=== PATIENT | male | born 1980 | race Caucasian/White ===

== ENCOUNTER → 2019-04-30 | Outpatient (CLI) | payer BC ==
--- NOTE | 2019-04-30 12:27 | CONS ---
CONSULTATION DATE OF SERVICE: 04/30/2019 A 38-year-old gentleman who had been evaluated in the sleep center for possible obstructive sleep apnea-hypopnea syndrome. HISTORY OF PRESENT ILLNESS/SLEEP-WAKE EVALUATION: Patient's usual sleep schedule from 12:30 a.m. until around 7:30 a.m. on working days and from 9 p.m. to 7 a.m. on weekend. Usually no problems with falling asleep. No TV in bedroom. Patient usually sleeps on the side position with his , and according to her, he has loud snoring. He wakes up from sleep about 2 times with episodes of gasping for air and has 2 episodes of nocturia at night. No history of hypnagogic hallucinations, sleep paralysis or cataplexy. In the morning, patient wakes up tired. He rarely takes naps. Roosevelt Sleepiness Scale is 5. PAST MEDICAL HISTORY: Positive for hypertension, gout, back problems. PAST SURGICAL HISTORY: Right second toe surgery for arthritis elated to gout. MEDICATIONS: Meloxicam, losartan hydrochlorothiazide, baby aspirin, ZzzQuil occasionally. SOCIAL HISTORY: Negative for smoking or using alcohol. FAMILY HISTORY: Hypertension, snoring. REVIEW OF SYSTEMS: Awakenings from sleep, episodes of tiredness and sleepiness during the day. PHYSICAL EXAMINATION: During physical exam, gentleman without distress. VITAL SIGNS: BP 124/91, HR 90, RR 16, height 5 feet 10-3/4 inches, weight 251 pounds, body mass index 35.3. Neck 19 inches in circumference. Temperature 98.5, oxygen saturation at room air 97%. HEENT: PERRLA, EOMI. Oropharynx extremely low position of soft palate. Mallampati 4. NECK: Supple, no JVD. Thyroid is not palpable. LUNGS: Clear to percussion and to auscultation. Good air exchange. No wheezing or rhonchi. HEART: S1, S2 regular. No murmurs, gallops, or rubs. ABDOMEN: Slightly obese. EXTREMITIES: No clubbing or cyanosis. [employer]: Awake, alert, and oriented X3. Cranial nerves 2 to 7 intact. There is no fasciculation or atrophy. noted. No focal deficits observed. IMPRESSION: 1. Loud snoring, awakenings from sleep with nocturia, extremely low position of soft palate, Mallampati IV, wide neck 19 inches in circumference, episodes of sleepiness, obstructive sleep apnea-hypopnea syndrome. 2. Obesity, body mass index 35.3. 3. Hypertension. 4. History of gout. 5. Status post right second toe surgery for the gout problems. 6. History of back problems. PLAN: 1. Home sleep apnea test for evaluation of patient's breathing during sleep. 2. CPAP/BiPAP titration if sleep study confirms obstructive sleep apnea-hypopnea syndrome. 3. Preferable position during sleep on the side. 4. No driving if patient feels any sleepiness. 5. I will see patient for follow up visit to explain results of testing and following plan. Thank you very much for referring this patient for consultation. Sincerely, Manish Henry MD, PhD, FAASM Diplomat of [place] [employer] [place] [employer] Director Work of [facility] [place] MMODL / SAILAJAN: [id number] /
== END | disposition home or self-care (01) ==
LOC: SLEEP 10:51
PROVIDERS: ATTEND Internal Medicine
DX: G47.33 Obstructive sleep apnea (adult) (pediatric) (principal); I10 Essential (primary) hypertension; E66.9 Obesity, unspecified; R35.1 Nocturia; Z68.35 Body mass index [BMI] 35.0-35.9, adult; Z87.39 Personal history of other diseases of the musculoskeletal system and connective tissue; Z87.898 Personal history of other specified conditions; Z98.890 Other specified postprocedural states; Z79.1 Long term (current) use of non-steroidal anti-inflammatories (NSAID); Z79.82 Long term (current) use of aspirin; Z79.899 Other long term (current) drug therapy
CPT/HCPCS: 99201